=== PATIENT | female | born 1975 | race Caucasian/White ===

== ENCOUNTER 2018-08-04 07:39 | Day surgery (SDC) | payer BC ==
[2018-08-03 16:19] VITALS: BMI 24.7
[2018-08-04] MEDS ORDERED: oxyCODONE HCL 5 MG TABLET PO PRN (08:27)
[2018-08-04] MEDS ORDERED: ACETAMINOPHEN 500 MG TABLET (FP) PO PRN (08:27)
[2018-08-04] MEDS ORDERED: ONDANSETRON 4 MG/2 ML VIAL IVPUSH PRN (08:27)
[2018-08-04] MEDS ORDERED: LACTATED RINGERS SOLUTION 1,000 ML IV SCH (08:30)
[2018-08-04] MEDS ORDERED: PROPOFOL 20 ML ONE (08:58)
[2018-08-04] MEDS ORDERED: MIDAZOLAM HCL 2 MG/2 ML SINGLE DOSE VIAL ONE (08:58)
[2018-08-04] MEDS ORDERED: KETOROLAC TROMETHAMINE 30 MG/1 ML VIAL ONE (09:31)
[2018-08-04 11:59] VITALS: BP 137/67; PULSE 63; TEMP 98.1
--- NOTE | 2018-08-04 15:24 | OP ---
DATE OF OPERATION: 08/04/2018 PREOPERATIVE DIAGNOSIS: Irregular vaginal bleeding, thickened endometrial cavity. POSTOPERATIVE DIAGNOSIS: Irregular vaginal bleeding, thickened endometrial cavity, as well as endometrial polyp. SURGEON: Nikolay Barrera DO ANESTHESIA: General. INTRAVENOUS FLUIDS: 300 mL. DISTENTION MEDIA IN: 200 ml. DISTENTION MEDIA OUT: 150 mL. DISTENTION MEDIA DEFICIT: 50 mL. ESTIMATED BLOOD LOSS: 25 mL. SPECIMENS: Endometrial lining and polyp. COMPLICATIONS: None. FINDINGS: Examination under anesthesia revealed the uterus to be 8- to 10-week size, nontender, no adnexal masses. Cervix closed. No lesion, no masses. Hysteroscopy revealed pedunculated polyp on the anterior wall of the uterine cavity. Bilateral tubal ostia appeared normal. The risks, benefits, alternatives of the procedure were discussed with the patient. She understood the risk including but not limited to uterine perforation, fluid overload, and the risk of . Patient wished to proceed and signed consent. PROCEDURE: The patient was taken to the operating room where general anesthesia was administered without difficulty. She was placed upon the table in the dorsal lithotomy position and prepped and draped in the usual sterile fashion. A weighted speculum was inserted to the posterior aspect of the vagina. Single-tooth tenaculum was used to the grasp the anterior lip of the cervix. The uterus was carefully sounded to 7 cm. The cervical os was sequentially dilated to accommodate the 5-mm scope using dilator. This was then followed by insertion of the hysteroscope under direct visualization, and the uterus was distended with normal saline. The aforementioned findings were noted. The hysteroscope was then withdrawn from the cervix, and the cervix was further dilated to accommodate the large sharp curet. The uterus was curettaged in a clockwise fashion until gritty sensation was noted in all aspects of the uterus. The polyp was retrieved. The polyp and endometrial scrapings were then sent to Pathology. The tenaculum was removed from the cervix with excellent hemostasis noted at the puncture sites. The patient tolerated the procedure well. The instrument and sponge counts were correct x2. The patient was awakened from general anesthesia, taken to the recovery room in stable condition. The patient to go home after recovering from anesthesia, meeting all criteria for discharge. Patient was given instructions in regards to followup with Dr. Barrera in 2 weeks. Nikolay Barrera DO /[id number]
--- NOTE | 2018-08-07 14:08 | PATH ---
Surgical Pathology Report Patient Name: NARGIS WARREN [facility]. Rec. #: [id number] /Age/Gender: 1975 (Age: 43) / F Account: [id number] Location: [facility] SURGICAL Taken: 08/04/2018 Received: 08/04/2018 Reported: 08/07/2018 Physicians: Nikolay Barrera DO Specimen(s) Received ENDOMETRIAL POLYP Clinical History Irregular bleeding Final Diagnosis ENDOMETRIAL POLYP, DILATION AND CURETTAGE:FRAGMENTS OF ENDOMETRIAL POLYP AND BENIGN CERVICAL TISSUE. Electronically Signed Susana Newton M.D. Gross Description Received in formalin labeled "endometrial polyp," is a 2.2 x 2.0 x 0.3 cm aggregate of quintero red soft tissue fragments. The formalin is filtered and the specimen is entirely submitted in one cassette. 08/04/201808/04/2018
== END 2018-08-04 11:00 | disposition home or self-care (01) ==
LOC: JASU-SURG 07:39
PROVIDERS: ATTEND Obstetrics & Gynecology
PROC: 0UJD8ZZ Inspection of Uterus and Cervix, Via Natural or Artificial Opening Endoscopic (ICD-10-PCS; 2018-08-04)
PROC: 0UB97ZX Excision of Uterus, Via Natural or Artificial Opening, Diagnostic (ICD-10-PCS; principal; 2018-08-04 09:30)
PROC: 0UDB7ZX Extraction of Endometrium, Via Natural or Artificial Opening, Diagnostic (ICD-10-PCS; 2018-08-04 09:30)
DX: N93.9 Abnormal uterine and vaginal bleeding, unspecified (principal); N84.0 Polyp of corpus uteri
CPT/HCPCS: 84703; 88305-TC